=== PATIENT | female | born 1960 | race Caucasian/White ===

== ENCOUNTER 2024-10-28 19:35 | Emergency (ER) | payer MEDICARE, MEDICAID, SELFPAY ==
[2024-10-28 19:44] VITALS: BP 161/95; PULSE 105; RESP 19; TEMP 36.4; O2SAT 96; BMI 28.3
--- NOTE | 2024-10-28 21:13 | EDRME_ITS ---
Rapid Medical Screening Exam [facility] Arrival date/time: 10/28/24 19:35 64F with history of asthma, alcohol/drug use and schizophrenia presents to ED with friend, who patient has been staying with for placement and wanting to talk to social work nurse. Patient has been homeless, but friend's neighbors have been complainint about patient staying with friend. Patient will return in the AM to talk to social work nurse. Chief Complaint: Psychiatric Symptoms Vital signs: Vital Signs Temperature 97.5 F 10/28/24 19:44 Pulse Rate 105 H 10/28/24 19:44 Respiratory Rate 19 10/28/24 19:44 Blood Pressure 161/95 H 10/28/24 19:44 Pulse Oximetry (%) 96 10/28/24 19:44 Oxygen Delivery Method Room Air 10/28/24 19:44
== END 2024-10-28 21:27 | disposition left against medical advice (07) ==
PROVIDERS: Emergency Provider Emergency Medicine
DX: Z02.89 Encounter for other administrative examinations (principal); Z59.00 Homelessness unspecified; Z53.29 Procedure and treatment not carried out because of patient's decision for other reasons
CPT/HCPCS: 99281

== ENCOUNTER 2024-10-29 09:28 | Emergency (ER) | payer MEDICARE, MEDICAID, SELFPAY ==
[2024-10-29 09:51] VITALS: BP 162/85; PULSE 82; TEMP 36.7; O2SAT 96; BMI 26.7
--- NOTE | 2024-10-29 10:12 | PC.CC ---
Patient is a 64 year-old female who presents to the [facility] for mental health evaluation with her friend, Layne Mclean . ASWKath made ccgm-be-kwou contact with patient. ASW introduced self, role, and reason for visit. Patient appeared alert and oriented to self, location, and situation.?At bedside is patient's friend Layne whom patient provided consent to remain in the room during assessment. Patient was pleasant and engaged in mental health assessment. Patient presented disheveled and unkempt. Patient presents as delusional making bizarre statements. Per friend, [place] [employer] was called out to the home and reported patient did not meet criteria for 5150-hold as this is patient's baseline of auditory and sometimes visual hallucinations. Patient denied mental health diagnosis and reports she has an intake assessment in December with [facility] ([facility]). Patient denied suicidal and homicidal ideations. Patient denied past suicide attempts. Patient reports she has never been on a 5150-hold. Patient stated, There are terrorist in this country and conspiracy theories, the things I see are real. Patient does not take psychotropic medication. Per friend, the patient can no longer stay with her and patient was homeless for 12 years until September 2024 when she Layne took the patient into her home. The friend requested a motel voucher for the patient. ASW informed the patient and friend that ASW does not have vouchers for motels. Patient then stated, I can get a motel voucher from [employer]. ASW made contact with [facility] who reports patient does have an intake assessment for December 2024. ASW requested a sooner appointment for the patient to have an intake assessment, appointment provided for November 05, 2024 at 9:00am for intake assessment. Upon clinical consultation with APPEALS MANAGER, Leslie Dallas patient does not meet criteria for 5150-hold. ASW provided patient and friend with [facility] Resource Guide and referral for intake assessment at [facility]. Patient's friend reports she will take patient to the [facility] and [facility] for housing services. ASW provided update to BRIAN Crews and conflicts analyst Sara with discharge plan with appointment to [facility] and [facility] Guide.
--- NOTE | 2024-10-29 10:16 | EDNOTE_ITS ---
<Statement entered by Carrol Malik MD - 10/29/24 16:57> As co-signing physician, I was present and available for consult prn. I concur with the plan and care as documented by the midlevel provider. ED Psych RME/HPI General Chief Complaint: Psychiatric Symptoms Stated Complaint: PSYCH Time Seen by Provider: 10/29/24 10:14 Source: patient Arrival date/time: 10/29/24 09:28 64-year-old female with a history of schizophrenia, PTSD presents to the emergency room with a chief complaint of hearing voices. Patient is brought in by a friend who states she was recently homeless for the last 12 years and she has been taking care of her for the last month. Patient's friend states she can no longer take care of her and is asking to speak to a social secretary. Mode of arrival: ambulatory Limitations: no limitations Related Data Previous Rx's ?Medication ?Instructions ?Recorded albuterol sulfate 90 mcg/actuation 2 puff inhalation Q 6H PRN 08/31/23 aerosol inhaler shortness of breath or wheez ing #8.5 grams apixaban 5 mg tablet (Eliquis) 5 mg PO BID 1 month #60 tabs 08/31/23 metoprolol succinate 50 mg 50 mg PO QDAY #30 tabs 08/17 02/06 tablet,extended release 24 hr Allergies Allergy/AdvReac Type Severity Reaction Status Date / Time hydrocodone Allergy Intermediate ITCHY Verified 10/28/24 19:36 bupropion Allergy Mild itchy Verified 10/28/24 19:36 ciprofloxacin Allergy Mild itchy Verified 10/28/24 19:36 epinephrine Allergy Mild itchy Verified 10/28/24 19:36 haloperidol Allergy Mild itchy Verified 10/28/24 19:36 penicillin G Allergy Mild hives Verified 10/28/24 19:36 tramadol AdvReac Severe SICK TO Verified 10/28/24 19:36 STOMACH Review of Systems Review of Systems Systems Reviewed: All systems reviewed, normal except as documented Constitutional Constitutional: Reports system reviewed and no additional complaints, except as documented, Denies fatigue, Denies fever(s), Denies headache(s) and Denies weakness Eyes Eyes: Reports system reviewed and no additional complaints, except as documented, Denies blurry vision and Denies change in vision ENT Ears, Nose, Mouth, and Throat: Reports system reviewed and no additional complaints, except as documented, Denies otalgia, Denies headache(s), Denies nasal congestion, Denies throat swelling and Denies vertigo Cardiovascular Cardiovascular: Reports system reviewed and no additional complaints, except as documented, Denies chest pain, Denies dyspnea and Denies dyspnea on exertion Respiratory Respiratory: Reports system reviewed and no additional complaints, except as documented, Denies chest congestion, Denies cough, Denies dyspnea, Denies dyspnea on exertion and Denies wheezing Gastrointestinal Gastrointestinal: Reports system reviewed and no additional complaints, except as documented, Denies abdominal pain, Denies cramping, Denies nausea and Denies vomiting Genitourinary Genitourinary: Reports system reviewed and no additional complaints, except as documented Musculoskeletal Musculoskeletal: Reports system reviewed and no additional complaints, except as documented and Denies back pain Integumentary/Breasts Skin/Breast: Reports system reviewed and no additional complaints, except as documented and Denies wounds Neurologic Neurologic: Reports system reviewed and no additional complaints, except as documented, Denies confusion, Denies headache(s), Denies lack of coordination, Denies vertigo and Denies weakness Psychiatric Psychiatric: Reports system reviewed and no additional complaints, except as documented, Denies anxiety, Reports auditory hallucinations, Denies confusion, Denies depression, Reports hallucinations, Denies paranoia, Denies suicidal ideation, Denies tactile hallucinations and Reports visual hallucinations Endocrine Endocrine: Reports system reviewed and no additional complaints, except as documented and Denies fatigue Hematologic/Lymphatic Hematologic/Lymphatic: Reports system reviewed and no additional complaints, except as documented and Denies lymphadenopathy Allergic/Immunologic Allergic/Immunologic: Reports system reviewed and no additional complaints, except as documented, Denies throat swelling, Denies urticaria and Denies wheezing ED Exam General Limitations: Present no limitations General appearance: Present alert and in no apparent distress Head Head exam: Present atraumatic Eye Eye exam: Present normal appearance, PERRL and EOMI ENT ENT exam: Present normal exam, normal oropharynx and mucous membranes moist Neck Neck exam: Present normal inspection, full ROM and trachea midline Chest Chest inspection: Present normal inspection and symmetric chest wall rise Respiratory Respiratory exam: Present normal lung sounds bilaterally Cardiovascular Cardiovascular exam: Present regular rate, normal rhythm and normal heart sounds Abdominal Exam Abdominal exam: Present soft and normal bowel sounds Extremities Exam Extremities exam: Present normal inspection and full ROM Back Exam Back exam: Present normal inspection and full ROM Neurological Exam Neurological exam: Present alert, oriented X3 and CN II-XII intact Expanded Neurological Exam Patient oriented to: Present person, place and time Coma scale eye opening: spontaneous Coma scale motor response: obeys commands Coma scale verbal response: oriented Coma scale total: 15 Psychiatric Psychiatric exam: Present normal affect and normal mood; Absent agitated, anxious, manic, homicidal ideation or suicidal ideation Expanded Psychiatric Exam Expanded psych exam: Present auditory hallucinations and visual hallucinations; Absent paranoid, mute or refuses to answer Skin Skin exam: Present warm, dry, intact and normal color Course Quality Measures none Vital Signs Vital signs: Vital Signs Temperature 98.0 F 10/29/24 09:51 Pulse Rate 82 10/29/24 09:51 Blood Pressure 162/85 H 10/29/24 09:51 Pulse Oximetry (%) 96 10/29/24 09:51 Oxygen Delivery Method Room Air 10/29/24 09:51 O2 saturation 96% within normal limits Psych MDM Narrative MDM Narrative:: 64-year-old female with a history of schizophrenia, PTSD presents to the emergency room with a chief complaint of hearing voices. Patient is brought in by a friend who states she was recently homeless for the last 12 years and she has been taking care of her for the last month. Patient's friend states she can no longer take care of her and is asking to speak to a social secretary. Patient is hemodynamically stable and in no apparent distress. Patient is a denying any medical treatment or medical care and states she is just here because a friend brought her. Patient is a GCS of 15 she is alert and oriented x 4. Patient denies any suicidal or homicidal ideation. Friend at bedside states the patient is hearing voices and hallucinating at times. Friend at bedside states she would like to speak to a social secretary as she is unable to take her back home and take care of her. [place] our social secretary spoke to the patient and gave her resources. Patient was discharged and educated to follow-up with primary care provider and return to the emergency room for any evidence of worsening signs or symptoms Patient data External records reviewed:: [facility] previous records Clinical information provided by:: patient Social determinants that could affect healthcare access:: none Patient has the following chronic illnesses:: Drug-induced schizophrenia, PTSD How is presenting disease/condition affected by chronic disease/condition?: exacerbated by Evaluation data The following diagnostics were reviewed and interpreted by me:: lab results and radiology exam(s) Lab and/or radiology exams considered but not ordered:: Labs and radiology exams considered and ordered Interpretation Summary: N/A Medications / Prescriptions Medications or Prescriptions considered but not ordered:: No medication given Medication administrations:: No medication given Consultations Consultation(s) initiated? (list below): No Diagnosis Psych Differential Diagnosis: acute psychosis, chronic schizophrenia, suicidal ideation, bipolar disorder, drug-induced psychotic disorder and acute anxiety Most likely diagnosis given after review of the tests above:: Chronic schizophrenia Admission Indicated Admission indicated?: not indicated Admission Request Was there a request for admission?: No Disposition Plan Disposition Plan: Discharge Discharge Attestation Discharge Attestation: The patient and all family members were given an opportunity to ask questions and understood the discharge instructions. Discharge instructions specifically effects, indications for sooner follow up or return to the emergency department, and the expected course of current diagnosis. Patient condition: Stable Discharge Plan Plan Patient Disposition: HOME (Self Care) Disposition Comment: Stable Prescriptions/Referrals Prescriptions/Med Rec: No Action metoprolol succinate 50 mg tablet extended release 24 hr 50 mg PO QDAY Qty: 30 3RF Eliquis 5 mg tablet 5 mg PO BID 30 Days Qty: 60 3RF albuterol sulfate 90 mcg/actuation HFA aerosol inhaler 2 puff inhalation Q6H PRN (Reason: shortness of breath or wheezing) Qty: 8.5 3RF Problem List Clinical Impression: Chronic schizophrenia Patient/Caregiver Discharge Instructions Education Materials: ED Schizophrenia, General Additional Instructions: Please follow-up with your primary care provider in the next 24 to 48 hours. You spoke to our social secretary and she gave you resources and answered all your questions. For any evidence of worsening signs or symptoms return to the emergency room immediately Print Language: Swedish Stand Alone Forms: Sissy Award Info., Patient Portal Info Letter PA/AGNES Supervising Physician PA/AGNES Supervising Physician: Dr. MALIK
== END 2024-10-29 10:53 | disposition home or self-care (01) ==
LOC: SERX 10:57
PROVIDERS: Emergency Provider Emergency Medicine
DX: F20.9 Schizophrenia, unspecified (principal)
CPT/HCPCS: 90839; 99283